=== PATIENT | female | born 1985 | race Caucasian/White ===

== ENCOUNTER 2018-05-11 11:45 | Inpatient (IN) | payer OTHER ==
[~2018-05-11] VITALS: Ht 167.6 cm; Wt 110.0 kg
[~2018-05-11 11:45] MED LIST: CLON0.5T11 PO; FLUTICASONE NAS; MULT-257 PO; SUMA100T4 PO
[2018-05-11] MEDS ORDERED: OXYTOCIN 30U/ 0.9% NaCL 500ML 500 ML IV ONE (20:26)
[2018-05-11] MEDS ORDERED: FENTANYL PF 100 MCG/2ML IV PRN (20:30)
[2018-05-11] MEDS ORDERED: TERBUTALINE 1 MG/ML, 1ML IVPush PRN (20:30)
[2018-05-11] MEDS ORDERED: FENTANYL PF 100 MCG/2ML IVPush PRN (20:30)
[2018-05-11] MEDS ORDERED: ONDANSETRON 2MG/ML, 2ML IVPush PRN (20:30)
[2018-05-11] MEDS ORDERED: MISOPROSTOL 25 MCG TABLET ONE (20:58)
[2018-05-11] MEDS ORDERED: PLEASE ENTER HEIGHT AND WEIGHT MC SCH (21:00)
[2018-05-11 21:11] LABS: BASOPHILS # (AUTO) 0.03 x10^3/uL (0-0.1); BASOPHILS % (AUTO) 0 % (0-1); EOSINOPHILS # (AUTO) 0.16 x10^3/uL (0-0.4); EOSINOPHILS % (AUTO) 1 % (1-7); LYMPHOCYTES # (AUTO) 2.16 x10^3/uL (1-3.4); LYMPHOCYTES % (AUTO) 15 % (22-44); MD NO; MEAN CORPUSCULAR HGB CONC 33.5 g/dL (32.4-35.8); MEAN CORPUSCULAR VOLUME 83.6 fL (80-100); MEAN PLATELET VOLUME 8.5 fL (7.4-10.4); MONOCYTES # (AUTO) 1.06 x10^3/uL (0.2-0.8); MONOCYTES % (AUTO) 8 % (2-9); NEUTROPHILS # (AUTO) 10.66 x10^3/uL (1.8-6.8); NEUTROPHILS % (AUTO) 76 % (42-75); PLATELET COUNT 379 x10^3/uL (130-400); RED BLOOD COUNT 3.93 x10^6/uL (3.82-5.3); RED CELL DISTRIBUTION WIDTH 13.7 % (9.6-15.2)
[2018-05-11] MEDS: MISOPROSTOL 25 MCG TABLET VG PRN (22:06)
[2018-05-11] MEDS ORDERED: PREN1TAB60 PO (23:57)
[2018-05-12] MEDS ORDERED: RANI75TA12 PO (00:02)
[2018-05-12] MEDS ORDERED: LIDOCAINE 1%, 20ML ONE (00:34)
[2018-05-12] MEDS ORDERED: MISOPROSTOL 200 MCG TABLET ONE (00:34)
[2018-05-12] MEDS ORDERED: NEWBORN KIT ONE (00:34)
[2018-05-12] MEDS ORDERED: OXYTOCIN 30U/ 0.9% NaCL 500ML 500 ML ONE ×2 (00:34→12:32)
[2018-05-12] MEDS ORDERED: MISOPROSTOL 25 MCG TABLET ONE ×2 (02:06→06:25)
[2018-05-12] MEDS: MISOPROSTOL 25 MCG TABLET VG PRN ×2 (02:10→06:30)
[2018-05-12] MEDS: SODIUM CHLORIDE FLUSH 3ML SYRINGE IVF SCH ×2 (08:08→21:00)
[2018-05-12] MEDS: LACTATED RINGERS 1,000 ML IV SCH ×4 (12:29→20:26)
[2018-05-12] MEDS ORDERED: OXYTOCIN 30U/ 0.9% NaCL 500ML 500 ML IV PRN (12:35)
[2018-05-12] MEDS ORDERED: FENTANYL/BUPIV./NS/PF 250 ML EPIDCONT ONE (14:03)
[2018-05-12] MEDS ORDERED: FENTANYL/BUPIV./NS/PF 250 ML EPIDCONT SCH (14:42)
[2018-05-12] MEDS ORDERED: NALOXONE 0.4 MG/ML, 1ML IVPush PRN (15:00)
[2018-05-12] MEDS ORDERED: EPHEDRINE 50 MG/ML, 1ML IVPush PRN (15:00)
[2018-05-12] MEDS ORDERED: LACTATED RINGERS 1,000 ML IVBOLUS PRN (15:00)
[2018-05-12] MEDS ORDERED: ACETAMINOPHEN 325 MG TABLET ONE (19:43)
[2018-05-12] MEDS: D5%-LACTATED RINGERS 1,000 ML IV SCH (19:49)
[2018-05-12] MEDS ORDERED: ACETAMINOPHEN 325 MG TABLET PO PRN (20:00)
[2018-05-12] MEDS ORDERED: CALCIUM CARBONATE 500 MG TAB.CHEW PO PRN (20:00)
[2018-05-12] MEDS ORDERED: SODIUM CITRATE/CITRIC ACID 30 ML UDC PO PRN (20:00)
[2018-05-12] MEDS ORDERED: METOCLOPRAMIDE 5 MG/ML, 2ML IVPush PRN (20:00)
[2018-05-12] MEDS ORDERED: ONDANSETRON 2MG/ML, 2ML ONE (20:45)
[2018-05-13] MEDS ORDERED: FENTANYL PF 100 MCG/2ML ONE (02:10)
[2018-05-13] MEDS ORDERED: BUPIVACAINE 0.25% ONE (02:11)
[2018-05-13] MEDS: LACTATED RINGERS 1,000 ML IV SCH ×3 (03:14→04:26)
[2018-05-13] MEDS: D5%-LACTATED RINGERS 1,000 ML IV SCH ×2 (03:44→11:44)
[2018-05-13] MEDS ORDERED: FENTANYL/BUPIV./NS/PF 250 ML EPIDCONT ONE (04:11)
[2018-05-13] MEDS ORDERED: OXYTOCIN 30U/ 0.9% NaCL 500ML 500 ML IV SCH (06:22)
[2018-05-13] MEDS ORDERED: CALCIUM CARBONATE 500 MG TAB.CHEW PO PRN (06:30)
[2018-05-13] MEDS ORDERED: DIPH,PERTUSS(ACELL),TET VAC/PF NC IM-VACC PRN (06:30)
[2018-05-13] MEDS ORDERED: MAGNESIUM HYDROXIDE 8%, 30ML UDC PO PRN (06:30)
[2018-05-13] MEDS ORDERED: ONDANSETRON 2MG/ML, 2ML IV PRN (06:30)
[2018-05-13] MEDS ORDERED: METHYLERGONOVINE 0.2 MG/ML IM PRN (06:30)
[2018-05-13] MEDS ORDERED: RHOGAM FROM BLOOD BANK 1 NOTE EA IM/IV ONE (06:30)
[2018-05-13] MEDS ORDERED: MEASLES,MUMPS&RUBELLA VACC/PF 0.5 ML SQ PRN (06:30)
[2018-05-13] MEDS ORDERED: OXYTOCIN 30U/ 0.9% NaCL 500ML 500 ML ONE (07:23)
[2018-05-13] MEDS ORDERED: IBUPROFEN 600 MG TABLET ONE (07:24)
[2018-05-13] MEDS: IBUPROFEN 600 MG TABLET PO PRN ×3 (07:27→20:42)
[2018-05-13] MEDS: SODIUM CHLORIDE FLUSH 3ML SYRINGE IVF SCH (09:00)
[2018-05-13] MEDS: PRENATAL VIT/IRON/FA 1 EACH TABLET PO SCH (09:00)
[2018-05-13 09:15] VITALS: BP 101/60
[2018-05-13 12:46] VITALS: BP 110/70
[2018-05-13] MEDS: OXYcodone/APAP 5/325MG TABLET PO PRN ×3 (12:52→20:42)
[2018-05-13 14:00] LABS: BASOPHILS # (AUTO) 0.04 x10^3/uL (0-0.1); BASOPHILS % (AUTO) 0 % (0-1); EOSINOPHILS # (AUTO) 0.03 x10^3/uL (0-0.4); EOSINOPHILS % (AUTO) 0 % (1-7); LYMPHOCYTES # (AUTO) 1.47 x10^3/uL (1-3.4); LYMPHOCYTES % (AUTO) 7 % (22-44); MD NO; MEAN CORPUSCULAR HEMOGLOBIN 28.2 pg (27.0-34.8); MEAN CORPUSCULAR HGB CONC 33.9 g/dL (32.4-35.8); MEAN CORPUSCULAR VOLUME 83.2 fL (80-100); MEAN PLATELET VOLUME 8.9 fL (7.4-10.4); MONOCYTES # (AUTO) 1.79 x10^3/uL (0.2-0.8); MONOCYTES % (AUTO) 9 % (2-9); NEUTROPHILS # (AUTO) 16.69 x10^3/uL (1.8-6.8); NEUTROPHILS % (AUTO) 83 % (42-75); PLATELET COUNT 352 x10^3/uL (130-400); RED BLOOD COUNT 3.31 x10^6/uL (3.82-5.3); RED CELL DISTRIBUTION WIDTH 13.9 % (9.6-15.2)
[2018-05-13 16:52] VITALS: BP 101/68
[2018-05-13 20:00] VITALS: BP 110/73
[2018-05-13] MEDS: DOCUSATE 100 MG CAPSULE PO PRN (20:41)
[2018-05-14 00:40] VITALS: BP 90/52
[2018-05-14] MEDS: IBUPROFEN 600 MG TABLET PO PRN ×2 (02:59→10:10)
[2018-05-14] MEDS: OXYcodone/APAP 5/325MG TABLET PO PRN (02:59)
[2018-05-14] MEDS: OXYcodone IR 5MG TABLET PO PRN ×2 (07:09→11:05)
[2018-05-14] MEDS ORDERED: IBUP-1222 PO (08:15)
[2018-05-14] MEDS: PRENATAL VIT/IRON/FA 1 EACH TABLET PO SCH (10:10)
[2018-05-14] MEDS: DOCUSATE 100 MG CAPSULE PO PRN (10:10)
== END 2018-05-14 11:11 | disposition home or self-care (01) | DRG 807 ==
LOC: LDIP 19:54 → 2NW 05-13 09:18
PROVIDERS: ADMIT Obstetrics & Gynecology Gynecology; ATTEND Obstetrics & Gynecology Gynecology
PROC: 10E0XZZ Delivery of Products of Conception, External Approach (ICD-10-PCS; principal; 2018-05-13)
PROC: 0KQM0ZZ Repair Perineum Muscle, Open Approach (ICD-10-PCS; 2018-05-13)
PROC: 3E0P7VZ Introduction of Hormone into Female Reproductive, Via Natural or Artificial Opening (ICD-10-PCS; 2018-05-13)
PROC: 3E0R3BZ Introduction of Anesthetic Agent into Spinal Canal, Percutaneous Approach (ICD-10-PCS; 2018-05-13)
PROC: 00HU33Z Insertion of Infusion Device into Spinal Canal, Percutaneous Approach (ICD-10-PCS; 2018-05-13)
PROC: 3E033VJ Introduction of Other Hormone into Peripheral Vein, Percutaneous Approach (ICD-10-PCS; 2018-05-13)
DX: O48.0 Post-term pregnancy (principal); Z37.0 Single live birth; Z3A.39 39 weeks gestation of pregnancy; Z82.49 Family history of ischemic heart disease and other diseases of the circulatory system; Z83.3 Family history of diabetes mellitus; Z86.61 Personal history of infections of the central nervous system; O70.1 Second degree perineal laceration during delivery; Z90.49 Acquired absence of other specified parts of digestive tract; Z23 Encounter for immunization
CPT/HCPCS: 36415; J7121; 82803; 85025; 86850; 86900; G0378; J2405; J2590; J3010; J7120

== ENCOUNTER 2019-09-01 12:34 | Emergency (ER) | payer OTHER ==
[~2019-09-01] VITALS: Ht 165.1 cm; Wt 80.0 kg
[~2019-09-01 12:34] MED LIST changes: +CLON-364 PO; -CLON0.5T11 PO; +IBUP-1222 PO; +PREN1TAB60 PO; +RANI-244 PO
--- NOTE | 2019-09-01 12:39 | NUR ---
ASSISTED PT TO ROOM. TRIAGE IN ROOM
[2019-09-01] MEDS ORDERED: SODIUM CHLORIDE FLUSH 10ML SYR IVF ONE (13:30)
[2019-09-01] MEDS ORDERED: SODIUM CHLORIDE 0.9% 1,000ML IVBOLUS ONE (13:30)
[2019-09-01 13:31] LABS: HCG UR SG 1.016 (1.003-1.030); MICROSCOPIC NOT IND
[2019-09-01 13:35] LABS: MEAN CORPUSCULAR HEMOGLOBIN 28.5 pg (27.0-34.8); MEAN CORPUSCULAR HGB CONC 33.3 g/dL (32.4-35.8); MEAN CORPUSCULAR VOLUME 85.7 fL (80-100); MEAN PLATELET VOLUME 8.6 fL (7.4-10.4); PLATELET COUNT 211 x10^3/uL (130-400); RED BLOOD COUNT 4.87 x10^6/uL (3.82-5.3); RED CELL DISTRIBUTION WIDTH 13.8 % (9.6-15.2)
[2019-09-01 13:46] LABS: ALANINE AMINOTRANSFERASE 216 U/L (12-78); ALBUMIN 2.9 g/dL (3.4-5.0); ANION GAP 4 mmol/L (5-15); CHLORIDE 111 mmol/L (98-107); CREATININE 0.62 mg/dL (0.55-1.02)
[2019-09-01 13:48] LABS: ALKALINE PHOSPHATASE 171 U/L (45-117); BILIRUBIN,TOTAL 0.3 mg/dL (0.2-1.0); CREATINE KINASE, TOTAL 53 U/L (26-192); TOTAL PROTEIN 6.1 g/dL (6.4-8.2)
[2019-09-01 14:14] LABS: MD YES
[2019-09-01 14:35] LABS: <PLATELET ESTIMATE> ADEQUATE; <RBC MORPHOLOGY> NORMAL; BAND#(MANUAL) 0.17 x10^3/uL; BANDS%(MANUAL) 2 % (0-7); BASOS#(MANUAL) 0.17 x10^3/uL (0-0.1); BASOS% (MANUAL) 2 % (0-1); LYMPHS% (MANUAL) 56 % (22-44); METAMYELOCYTES# (MANUAL) 0.17 x10^3/uL (0-0); METAMYELOCYTES% (MANUAL) 2 % (0-1); MONOS#(MANUAL) 0.84 x10^3/uL (0.3-2.7); MONOS% (MANUAL) 10 % (2-9); SEG#(MANUAL) 2.35 x10^3/uL (1.8-6.8); SEGS% (MANUAL) 28 % (42-75)
[2019-09-01 14:36] LABS: <PLT MORPHOLOGY> NORMAL PLT MORPH
[2019-09-01 14:51] VITALS: BP 117/74
== END 2019-09-01 14:53 | disposition home or self-care (01) ==
LOC: ED 12:39
DX: B34.9 Viral infection, unspecified (principal); Z20.828 Contact with and (suspected) exposure to other viral communicable diseases; M79.10 Myalgia, unspecified site; R50.9 Fever, unspecified; R53.81 Other malaise
CPT/HCPCS: 36415; 71045; 80053; 81003; 81025; 82550; 84145; 85025; 99284; J7030; U0001

== ENCOUNTER → 2020-03-23 | Outpatient (CLI) | payer OTHER ==
[2020-03-23 07:32] LABS: BASOPHILS % (AUTO) 1 % (0-1); EOSINOPHILS % (AUTO) 1 % (1-7); LYMPHOCYTES % (AUTO) 37 % (22-44); MEAN CORPUSCULAR HEMOGLOBIN 30.2 pg (27.0-34.8); MEAN CORPUSCULAR HGB CONC 33.8 g/dL (32.4-35.8); MONOCYTES % (AUTO) 9 % (2-9); NEUTROPHILS % (AUTO) 52 % (42-75); PLATELET COUNT 287 x10^3/uL (130-400); RED BLOOD COUNT 4.74 x10^6/uL (3.82-5.3); RED CELL DISTRIBUTION WIDTH 13.4 % (9.6-15.2)
[2020-03-23 07:34] LABS: MD NO
[2020-03-23 07:39] LABS: % IRON SATURATION 42 % (20-55); ALANINE AMINOTRANSFERASE 32 U/L (12-78); ANION GAP 0 mmol/L (5-15); CALCIUM 9.2 mg/dL (8.5-10.1); CHLORIDE 109 mmol/L (98-107); IRON LEVEL 131 mcg/dL (50-170); TOTAL IRON BINDING CAPACITY 311 mcg/dL (250-450)
[2020-03-23 07:42] LABS: ALKALINE PHOSPHATASE 46 U/L (45-117); BILIRUBIN,TOTAL 0.5 mg/dL (0.2-1.0); CHOL/HDL RATIO 3.6; CHOLESTEROL, TOTAL 203 mg/dL (140-239); HDL CHOL % 28 % (28-40); HDL CHOLESTEROL (DIRECT) 56 mg/dL (40-60); LDL CHOLESTEROL,CALCULATED 130 mg/dL (54-169); LDL/HDL RATIO 2.3 (0.5-3.0); TOTAL PROTEIN 7.1 g/dL (6.4-8.2); TRIGLYCERIDES 85 mg/dL (50-200); VLDL CHOLESTEROL 17 mg/dL (0-25)
== END | disposition home or self-care (01) ==
LOC: LAB 07:09
PROVIDERS: ATTEND Nurse Practitioner Family
DX: R73.02 Impaired glucose tolerance (oral) (principal); D50.9 Iron deficiency anemia, unspecified; E66.9 Obesity, unspecified; E78.00 Pure hypercholesterolemia, unspecified; F41.9 Anxiety disorder, unspecified
CPT/HCPCS: 36415; 80053; 80061; 83036; 83540; 83550; 85025

== ENCOUNTER 2020-09-27 07:22 | Outpatient (CLI) | payer OTHER ==
[2020-09-27 07:47] LABS: MEAN CORPUSCULAR HGB CONC 33.8 g/dL (32.4-35.8); PLATELET COUNT 324 x10^3/uL (130-400); RED BLOOD COUNT 4.95 x10^6/uL (3.82-5.3); RED CELL DISTRIBUTION WIDTH 13.8 % (9.6-15.2)
[2020-09-27 07:57] LABS: ALANINE AMINOTRANSFERASE 37 U/L (12-78); ALBUMIN 4.2 g/dL (3.4-5.0); ANION GAP 4 mmol/L (5-15); CALCIUM 8.9 mg/dL (8.5-10.1); CHLORIDE 108 mmol/L (98-107)
[2020-09-27 08:08] LABS: ALKALINE PHOSPHATASE 46 U/L (45-117); BILIRUBIN,TOTAL 0.5 mg/dL (0.2-1.0); CHOL/HDL RATIO 3.5; CHOLESTEROL, TOTAL 190 mg/dL (140-239); CREATININE 0.63 mg/dL (0.55-1.02); HDL CHOL % 28 % (28-40); HDL CHOLESTEROL (DIRECT) 54 mg/dL (40-60); LDL CHOLESTEROL,CALCULATED 123 mg/dL (54-169); LDL/HDL RATIO 2.3 (0.5-3.0); TOTAL PROTEIN 7.5 g/dL (6.4-8.2); TRIGLYCERIDES 65 mg/dL (50-200); VLDL CHOLESTEROL 13 mg/dL (0-25)
== END 2020-09-27 23:59 | disposition home or self-care (01) ==
LOC: LAB 07:22
PROVIDERS: ATTEND Nurse Practitioner Family
DX: Z00.01 Encounter for general adult medical examination with abnormal findings (principal)
CPT/HCPCS: 36415; 80053; 80061; 82306; 82785; 83036; 84443; 84550; 85027; 86003; 86757